=== PATIENT | male | born 1950 | race Caucasian/White ===

== ENCOUNTER 2021-08-10 06:52 | Emergency (ER) | payer BC ==
[~2021-08-10] VITALS: Ht 172.7 cm; Wt 67.0 kg
[2021-08-10 07:33] VITALS: BP 137/89
[2021-08-10] MEDS ORDERED: AMOX-580 PO (08:02)
[2021-08-10] MEDS ORDERED: amox tr/potassium clavulanate 875/125mg TAB PO ONE (08:05)
== END 2021-08-10 08:28 | disposition home or self-care (01) ==
LOC: EEVIPCON 06:53 → ER 06:53
DX: R10.32 Left lower quadrant pain (principal)
CPT/HCPCS: 99283

== ENCOUNTER 2021-09-26 08:33 | Outpatient (CLI) | payer BC ==
[2021-09-26 09:19] LABS: CLARITY,URINE CLOUDY (Clear); COLOR,URINE YELLOW (Yellow); GLUCOSE, URINE NEGATIVE (Neg); KETONES,URINE NEGATIVE (Neg); LEUKOCYTE ESTERASE ,URINE NEGATIVE (Neg); NITRITES, URINE NEGATIVE (Neg); OCCULT BLOOD,URINE LARGE (Neg); PROTEIN,URINE TRACE mg/dl (Neg); UROBILINOGEN,URINE 0.2 E.U/dL (0.2-1.0)
[2021-09-26 09:21] LABS: BASOPHILS % (AUTO) 0.6 % (0-1); EOSINOPHILS # (AUTO) 0.1 X10'3 (0-0.9); EOSINOPHILS % (AUTO) 1.8 % (0-6); HEMATOCRIT 43.6 % (42.0-52.0); HEMOGLOBIN 14.8 g/dl (14.0-17.9); LYMPHOCYTES # (AUTO) 1.6 X10'3 (1.1-4.8); LYMPHOCYTES % (AUTO) 34.8 % (21-51); MEAN CORPUSCULAR HEMOGLOBIN 32.9 PG (27.0-31.0); MEAN PLATELET VOLUME 8.4 FL (7.4-10.4); MONOCYTES # (AUTO) 0.5 X10'3 (0-0.9); MONOCYTES % (AUTO) 11.2 % (2-12); NEUTROPHILS # (AUTO) 2.4 X10'3 (1.8-7.7); NEUTROPHILS % (AUTO) 51.6 % (42-75); PLATELET COUNT 278 X10'3 (140-440); WHITE BLOOD COUNT 4.6 X10'3 (4.5-11.0)
[2021-09-26 09:26] LABS: UA COLLECTION TYPE CLN CATCH MIDSTREAM
[2021-09-26 09:28] LABS: BACTERIA,URINE FEW /HPF (Neg); MUCUS STRANDS NONE SEEN /LPF (Neg); RBC,URINE 50-100 /HPF (0-2); SQUAMOUS EPITHELIAL CELL,UR FEW /LPF (FEW); WBC CLUMPS,URINE FEW /HPF (NEGATIVE)
[2021-09-26 10:58] LABS: ALANINE AMINOTRANSFERASE 566 U/L (12-78); ALBUMIN 3.8 G/DL (3.4-5.0); ALBUMIN/GLOBULIN RATIO 1.2 (1.1-1.5); ALKALINE PHOSPHATASE 228 IU/L (46-116); ANION GAP 10 (8-16); ASPARTATE AMINO TRANSFERASE 166 U/L (10-37); BILIRUBIN,TOTAL 0.8 MG/DL (0.1-1.0); BLOOD UREA NITROGEN 17 MG/DL (7-18); BUN/CREATININE RATIO 16.5 (5.4-32.0); CALCIUM 9.3 MG/DL (8.5-10.1); CHLORIDE 106 MMOL/L (99-107); CREATININE 1.03 MG/DL (0.60-1.10); GLUCOSE 89 MG/DL (70-104); POTASSIUM 4.8 MMOL/L (3.5-5.1); SODIUM 144 MMOL/L (135-145); TOTAL CARBON DIOXIDE 28.3 MMOL/L (24-32); TOTAL PROTEIN 7.1 G/DL (6.4-8.2); eGFR 72 ML/MIN
[2021-09-27 10:21] LABS: % FREE PSA 26.9 % (.); PSA, FREE 0.78 ng/mL
== END 2021-09-26 23:59 | disposition home or self-care (01) ==
LOC: LAB 08:33
PROVIDERS: ATTEND Family Medicine
DX: N40.0 Benign prostatic hyperplasia without lower urinary tract symptoms (principal); N20.0 Calculus of kidney; R31.0 Gross hematuria; Z00.8 Encounter for other general examination
CPT/HCPCS: 36415; 76770; 80053; 81001; 84153; 84154; 84439; 84443; 85025; 87088

== ENCOUNTER 2021-10-01 14:56 | Outpatient (CLI) | payer BC | END 2021-10-01 23:59 | disposition home or self-care (01) | LOC: RAD 14:56 | PROVIDERS: ATTEND Urology | DX: N20.0 Calculus of kidney (principal); R51.9 Headache, unspecified | CPT/HCPCS: 74018 ==

== ENCOUNTER 2021-10-02 07:11 | Outpatient (CLI) | payer BC ==
[2021-10-02 13:02] LABS: ALANINE AMINOTRANSFERASE 216 U/L (12-78); ALBUMIN 4.3 G/DL (3.4-5.0); ALBUMIN/GLOBULIN RATIO 1.1 (1.1-1.5); ALKALINE PHOSPHATASE 170 IU/L (46-116); ASPARTATE AMINO TRANSFERASE 50 U/L (10-37); BILIRUBIN,DIRECT 0.2 MG/DL (0-0.3); BILIRUBIN,TOTAL 0.7 MG/DL (0.1-1.0); TOTAL PROTEIN 8.1 G/DL (6.4-8.2)
[2021-10-03 10:30] LABS: HBSAG SCREEN Negative (Negative); HEP A AB, IGM Negative (Negative); HEPATITIS C ANTIBODY <0.1 s/co ratio (0.0-0.9)
== END 2021-10-02 23:59 | disposition home or self-care (01) ==
LOC: LAB 07:11
PROVIDERS: ATTEND Family Medicine
DX: N40.1 Benign prostatic hyperplasia with lower urinary tract symptoms (principal); N40.2 Nodular prostate without lower urinary tract symptoms; R31.0 Gross hematuria; R74.01 Elevation of levels of liver transaminase levels; R94.5 Abnormal results of liver function studies
CPT/HCPCS: 36415; 80074; 80076; 86255

== ENCOUNTER 2021-10-03 08:30 | Outpatient (CLI) | payer BC | END 2021-10-03 23:59 | disposition home or self-care (01) | LOC: RAD 08:30 | PROVIDERS: ATTEND Family Medicine | DX: K76.89 Other specified diseases of liver (principal); N40.1 Benign prostatic hyperplasia with lower urinary tract symptoms; N40.2 Nodular prostate without lower urinary tract symptoms | CPT/HCPCS: 76700 ==

== ENCOUNTER 2021-10-17 14:04 | Day surgery (SDC) | payer BC ==
[2021-10-15 10:33] LABS: BASOPHILS % (AUTO) 0.7 % (0-1); EOSINOPHILS % (AUTO) 0.6 % (0-6); LYMPHOCYTES # (AUTO) 2.2 X10'3 (1.1-4.8); LYMPHOCYTES % (AUTO) 40.2 % (21-51); MEAN CORPUSCULAR HEMOGLOBIN 32.5 PG (27.0-31.0); MEAN CORPUSCULAR HGB CONC 33.7 g/dL (33.0-36.5); MEAN CORPUSCULAR VOLUME 96.5 FL (78-98); MEAN PLATELET VOLUME 7.7 FL (7.4-10.4); MONOCYTES # (AUTO) 0.5 X10'3 (0-0.9); MONOCYTES % (AUTO) 9.7 % (2-12); NEUTROPHILS # (AUTO) 2.6 X10'3 (1.8-7.7); NEUTROPHILS % (AUTO) 48.8 % (42-75); PRE OP HEMATOCRIT 42.1 % (42.0-52.0); PRE OP HEMOGLOBIN 14.2 g/dL (14.0-17.9); PRE OP PLATELET COUNT 210 X10'3 (140-440); RED BLOOD COUNT 4.36 X10'6 (4.70-6.10); RED CELL DISTRIBUTION WIDTH 13.1 % (11.5-14.5)
[2021-10-15 10:56] LABS: ALBUMIN 3.9 G/DL (3.4-5.0); ALBUMIN/GLOBULIN RATIO 1.1 (1.1-1.5); ALKALINE PHOSPHATASE 92 IU/L (46-116); BLOOD UREA NITROGEN 15 MG/DL (7-18); BUN/CREATININE RATIO 14.6 (5.4-32.0); CALCIUM 8.9 MG/DL (8.5-10.1); CHLORIDE 106 MMOL/L (99-107); CREATININE 1.03 MG/DL (0.60-1.10); PRE OP ALT 46 U/L (30-65); PRE OP ANION GAP 8 (8-16); PRE OP AST 24 U/L (10-37); PRE OP BILIRUB, TOTAL 0.5 MG/DL (0.0-1.0); PRE OP GLUCOSE 92 MG/DL (70-104); PRE OP SODIUM 142 MMOL/L (135-145); TOTAL CARBON DIOXIDE 28.1 MMOL/L (24-32); TOTAL PROTEIN 7.3 G/DL (6.4-8.2); eGFR 72 ML/MIN
[~2021-10-17] VITALS: Ht 172.7 cm; Wt 77.0 kg
[2021-10-17] VITALS (11 sets, daily range): BP systolic 124–150; BP diastolic 81–87
[~2021-10-17 14:04] MED LIST: NO HOME MEDS; cefazolin/dext.iso 2gm/50ml IV ONE; famotidine 20mg tablet PO ONE; ringers solution, lacted 1,000 ML IV SCH
[2021-10-17] MEDS ORDERED: proCHLORperazine 10 MG/2 ml inj IV PRN (15:05)
[2021-10-17] MEDS ORDERED: ondansetron/PF 4mg/2ml inj IV PRN (15:05)
[2021-10-17] MEDS ORDERED: meperidine/PF 25mg/ml syringe IV PRN ×3 (15:05)
[2021-10-17] MEDS ORDERED: morphine 4 MG/ML inj SYRINge IV PRN (15:05)
[2021-10-17] MEDS ORDERED: ringers solution, lacted 1,000 ML IV SCH (15:05)
[2021-10-17] MEDS ORDERED: hydrALAZINE 20mg/ml inj. IV PRN (15:05)
[2021-10-17] MEDS ORDERED: morphine 2 MG/ML inj. syringe IV PRN (15:05)
[2021-10-17] MEDS ORDERED: acetaminophen 1,000mg/100ml IV 100 ML IV PRN (15:05)
[2021-10-17] MEDS ORDERED: labetalol 20mg/4ml (5mg/ml) syringe IV PRN (15:05)
[2021-10-17] MEDS ORDERED: FENTANYL CITRATE/PF 50 MCG/1 ML VIAL ONE (15:07)
[2021-10-17] MEDS ORDERED: midazolam 1 mg/ML 2ml injection ONE (15:18)
[2021-10-17] MEDS ORDERED: dexamethasone sod phosphate 4mg/ml inj. ONE (15:29)
[2021-10-17] MEDS ORDERED: LIDOcaine 2% (20mg/ml) 5ml vial ONE (15:29)
[2021-10-17] MEDS ORDERED: ondansetron/PF 4mg/2ml inj ONE (15:29)
[2021-10-17] MEDS ORDERED: propofol inj 20 ML IV ONE (15:29)
[2021-10-17] MEDS ORDERED: rocuronium 10mg/ml inj IV ONE (15:29)
[2021-10-17] MEDS ORDERED: sugammadex 200mg/2ml injection IV ONE (15:45)
--- NOTE | 2021-10-17 15:58 | NUR ---
Received from OR via [facility] , accompanied by Anesthesiologist RAVEN and report given by Anesthesiolgist. PATIENT WITH 20G PIV IN RIGHT HAND RUNNING LR AT 100. DENIES PAIN AT THIS TIME. VSS. [address] SM[address]ATION IN PLACE. PINK URINE IN SMITH CATHETER. Addendum: 10/17/21 at 1605 by Louis Kennedy RN, RN Amended: Links added.
--- NOTE | 2021-10-17 17:38 | NUR ---
ALL DISCHARGE CRITERIA HAS BEEN MET. VSS, PAIN AT A TOLERABLE LEVEL, VOIDING AND ABLE TO SAFELY AMBULATE AND TRANSFER SELF. IV TAKEN OUT WITHOUT ANY COMPLICATIONS. ALL DISCHARGE INSTRUCTIONS COVERED WITH PATIENT AND ALL QUESTIONS ANSWERED. PATIENT TAKEN OUT VIA WHEELCHAIR TO PERSONAL VEHICLE WHERE FAMILY/FRIEND DROVE PATIENT HOME. URINE SLIGHTLY PINK APPROXIMATELY 2700 CC OUT DURING STAY IN . SENT HOME WITH LEG BAG, DANE HOSE ON AND NIGHT BAG KIT WELL. VSS. Addendum: 10/17/21 at 1752 by Louis Kennedy RN, RN Amended: Links added.
== END 2021-10-17 17:38 | disposition home or self-care (01) ==
LOC: PRE-OP 14:04
PROVIDERS: ATTEND Urology
DX: D49.4 Neoplasm of unspecified behavior of bladder (principal); C67.2 Malignant neoplasm of lateral wall of bladder; Z98.890 Other specified postprocedural states; Z20.822 Contact with and (suspected) exposure to COVID-19; Z79.899 Other long term (current) drug therapy
CPT/HCPCS: 36415; 52235; 80053; 82948; 85025; 87635; 93005; C9803; J0131; J0690; J1100; J2250; J2405; J2704; J3010; J3490; J7120; Z7506; Z7512; A4346; A4618

== ENCOUNTER 2021-10-24 09:02 | Outpatient (CLI) | payer BC ==
[~2021-10-24 09:02] MED LIST changes: -cefazolin/dext.iso 2gm/50ml IV ONE; -famotidine 20mg tablet PO ONE; +iohexol 350MG/ML 100ml bottle IV ONE; -ringers solution, lacted 1,000 ML IV SCH
== END 2021-10-24 23:59 | disposition home or self-care (01) ==
LOC: RAD 09:02
PROVIDERS: ATTEND Urology
DX: C67.9 Malignant neoplasm of bladder, unspecified (principal); N40.0 Benign prostatic hyperplasia without lower urinary tract symptoms; N32.89 Other specified disorders of bladder; K40.20 Bilateral inguinal hernia, without obstruction or gangrene, not specified as recurrent; M43.8X6 Other specified deforming dorsopathies, lumbar region; N20.0 Calculus of kidney; K76.89 Other specified diseases of liver
CPT/HCPCS: 74178; Q9967

== ENCOUNTER 2021-11-17 08:11 | Inpatient (IN) | payer BC ==
[~2021-11-17] VITALS: Ht 172.7 cm; Wt 83.0 kg
[~2021-11-17 08:11] MED LIST changes: -iohexol 350MG/ML 100ml bottle IV ONE
[2021-11-17] MEDS ORDERED: CefTRIAXone 2gm/NS 100ml IVPB 100 ML IV ONE (08:30)
[2021-11-17] MEDS ORDERED: acetaminophen 325mg tablet PO ONE (08:45)
[2021-11-17 08:54] LABS: BASOPHILS % (AUTO) 0.1 % (0-1); EOSINOPHILS % (AUTO) 0 % (0-6); HEMATOCRIT 43.7 % (42.0-52.0); HEMOGLOBIN 14.7 g/dl (14.0-17.9); LYMPHOCYTES # (AUTO) 0.8 X10'3 (1.1-4.8); LYMPHOCYTES % (AUTO) 5.6 % (21-51); MEAN CORPUSCULAR HEMOGLOBIN 32.1 PG (27.0-31.0); MEAN CORPUSCULAR HGB CONC 33.7 g/dL (33.0-36.5); MEAN CORPUSCULAR VOLUME 95.4 FL (78-98); MONOCYTES # (AUTO) 1.2 X10'3 (0-0.9); MONOCYTES % (AUTO) 7.8 % (2-12); NEUTROPHILS # (AUTO) 13.2 X10'3 (1.8-7.7); NEUTROPHILS % (AUTO) 86.5 % (42-75); PLATELET COUNT 220 X10'3 (140-440); RED BLOOD COUNT 4.58 X10'6 (4.70-6.10); RED CELL DISTRIBUTION WIDTH 12.7 % (11.5-14.5); WHITE BLOOD COUNT 15.2 X10'3 (4.5-11.0)
[2021-11-17] MEDS ORDERED: ketorolac trometh. 30mg/ml inj. IV ONE (09:00)
[2021-11-17] MEDS ORDERED: normal saline 1000ML IV soln IVB ONE (09:00)
[2021-11-17] MEDS ORDERED: ondansetron/PF 4mg/2ml inj IV ONE (09:05)
[2021-11-17 09:15] LABS: ALANINE AMINOTRANSFERASE 20 U/L (12-78); ALBUMIN 3.7 G/DL (3.4-5.0); ALBUMIN/GLOBULIN RATIO 0.9 (1.1-1.5); ALKALINE PHOSPHATASE 65 IU/L (46-116); ANION GAP 12 (8-16); ASPARTATE AMINO TRANSFERASE 22 U/L (10-37); BILIRUBIN,TOTAL 0.9 MG/DL (0.1-1.0); BLOOD UREA NITROGEN 20 MG/DL (7-18); BUN/CREATININE RATIO 12.3 (5.4-32.0); CALCIUM 8.9 MG/DL (8.5-10.1); CHLORIDE 102 MMOL/L (99-107); CREATININE 1.63 MG/DL (0.60-1.10); GLUCOSE 114 MG/DL (70-104); POTASSIUM 3.9 MMOL/L (3.5-5.1); SODIUM 139 MMOL/L (135-145); TOTAL CARBON DIOXIDE 25.3 MMOL/L (24-32); TOTAL PROTEIN 7.9 G/DL (6.4-8.2); eGFR 42 ML/MIN
[2021-11-17] MEDS ORDERED: FLO0.4C PO (09:38)
[2021-11-17] MEDS ORDERED: morphine 2 MG/ML inj. syringe IV PRN ×2 (09:45)
[2021-11-17] MEDS ORDERED: potassium CL 10mEq/100ml bag 100 ML IV PRN (09:45)
[2021-11-17] MEDS ORDERED: bisacodyl 10mg suppository rectal RC PRN (09:45)
[2021-11-17] MEDS ORDERED: magnesium 4gm in 100ml NS 100 ML IV PRN (09:45)
[2021-11-17] MEDS ORDERED: magnesium Cl slow-release 64mg tablet PO PRN (09:45)
[2021-11-17] MEDS ORDERED: magnesium hydroxide 30ml (MOM) UD suspension PO PRN (09:45)
[2021-11-17] MEDS ORDERED: HYDROcodone/acetaminophen 5mg/325mg tablet PO PRN (09:45)
[2021-11-17] MEDS ORDERED: acetaminophen 650mg rectal suppository RC PRN (09:45)
[2021-11-17] MEDS ORDERED: ondansetron/PF 4mg/2ml inj IV PRN (09:45)
[2021-11-17] MEDS ORDERED: diphenhydrAMINE 25mg capsule PO PRN (09:45)
[2021-11-17] MEDS ORDERED: magnesium 2GM in 50ml NS 50 ML IV PRN (09:45)
[2021-11-17] MEDS ORDERED: acetaminophen 325mg tablet PO PRN (09:45)
[2021-11-17] MEDS ORDERED: mag hydrox/Alum hydrox/simeth 30ml oral suspension PO PRN (09:45)
[2021-11-17] MEDS ORDERED: potassium Cl 20 mEq SR tablet PO PRN ×2 (09:45)
[2021-11-17] MEDS ORDERED: HYDROcodone/acetaminophen 10/325mg tab PO PRN (09:45)
[2021-11-17 10:17] LABS: CLARITY,URINE CLOUDY (Clear); COLOR,URINE YELLOW (Yellow); GLUCOSE, URINE NEGATIVE (Neg); KETONES,URINE 15 mg/dl (Neg); LEUKOCYTE ESTERASE ,URINE MODERATE (Neg); NITRITES, URINE POSITIVE (Neg); OCCULT BLOOD,URINE SMALL (Neg); PH,URINE 6.5 (4.8-8.0); PROTEIN,URINE 30 mg/dl (Neg); UROBILINOGEN,URINE 0.2 E.U/dL (0.2-1.0)
[2021-11-17 10:23] LABS: UA COLLECTION TYPE URINAL
[2021-11-17 10:25] LABS: BACTERIA,URINE 1+ /HPF (Neg); MUCUS STRANDS FEW /LPF (Neg); SQUAMOUS EPITHELIAL CELL,UR NONE SEEN /LPF (FEW); WBC CLUMPS,URINE MODERATE /HPF (NEGATIVE); WBC,URINE TNTC /HPF (0-4)
[2021-11-17 10:41] LABS: HEMOGLOBIN A1C 5.4 % (4.5-6.2)
[2021-11-17] MEDS: normal saline 1000ml 1,000 ML IV SCH ×2 (11:39→20:31)
--- NOTE | 2021-11-17 12:25 | NUR ---
REPORT TO RUPA VALIENTE ON PCU
[2021-11-17 15:00] VITALS: BP 118/57
[2021-11-17] MEDS: acetaminophen 325mg tablet PO PRN (16:13)
[2021-11-17 18:00] VITALS: BP 99/54
--- NOTE | 2021-11-17 18:07 | NUR ---
Patient in room PCU 3021. I have received report from STEFFANIE Phelps and had the opportunity to ask questions and assume patient care.
--- NOTE | 2021-11-17 18:14 | NUR ---
Problems reprioritized. Patient report given, questions answered & plan of care reviewed with Teresa VALIENTE.
--- NOTE | 2021-11-17 18:16 | NUR ---
Patient in room PCU 3021. I have received report from STEFFANIE Smith and had the opportunity to ask questions and assume patient care.
--- NOTE | 2021-11-17 19:29 | NUR ---
Paged Dr. Siu as patient has not rec'd his Flomax 0.4 today, it is not scheduled until tomorrow at 0800. Per ok to order a dose to be given now.
[2021-11-17] MEDS: docusate sod 100mg capsule PO SCH (20:00)
[2021-11-17] MEDS: heparin, porcine 5000 units/ml vial SQ SCH (20:00)
[2021-11-17] MEDS: K and/or MAG REPLACEMENT MC SCH (20:40)
[2021-11-17] MEDS ORDERED: tamsulosin 0.4mg capsule PO ONE (21:00)
[2021-11-17 22:00] VITALS: BP 122/53
[2021-11-18] VITALS (7 sets, daily range): BP systolic 82–118; BP diastolic 47–71
[2021-11-18] MEDS: normal saline 1000ml 1,000 ML IV SCH ×3 (03:32→23:55)
--- NOTE | 2021-11-18 06:07 | NUR ---
Problems reprioritized. Patient report given, questions answered & plan of care reviewed with STEFFANIE Philip.
--- NOTE | 2021-11-18 06:27 | NUR ---
Patient in room PCU 3021. I have received report from Teresa VALIENTE and had the opportunity to ask questions and assume patient care. Patient is resting in bed and in no acute distress.
--- NOTE | 2021-11-18 06:32 | NUR ---
Patient in room PCU 3021. I have received report from Desirae and had the opportunity to ask questions and assume patient care.
[2021-11-18 07:01] LABS: BASOPHILS % (AUTO) 0.1 % (0-1); EOSINOPHILS % (AUTO) 0.1 % (0-6); HEMATOCRIT 36.2 % (42.0-52.0); HEMOGLOBIN 12.2 g/dl (14.0-17.9); LYMPHOCYTES # (AUTO) 1.4 X10'3 (1.1-4.8); LYMPHOCYTES % (AUTO) 13.2 % (21-51); MEAN CORPUSCULAR HEMOGLOBIN 32.2 PG (27.0-31.0); MEAN CORPUSCULAR HGB CONC 33.7 g/dL (33.0-36.5); MEAN CORPUSCULAR VOLUME 95.4 FL (78-98); MEAN PLATELET VOLUME 7.9 FL (7.4-10.4); MONOCYTES # (AUTO) 0.8 X10'3 (0-0.9); MONOCYTES % (AUTO) 7.1 % (2-12); NEUTROPHILS # (AUTO) 8.7 X10'3 (1.8-7.7); NEUTROPHILS % (AUTO) 79.5 % (42-75); PLATELET COUNT 158 X10'3 (140-440); RED BLOOD COUNT 3.79 X10'6 (4.70-6.10); RED CELL DISTRIBUTION WIDTH 12.8 % (11.5-14.5); WHITE BLOOD COUNT 10.9 X10'3 (4.5-11.0)
[2021-11-18 07:49] LABS: ALANINE AMINOTRANSFERASE 16 U/L (12-78); ALBUMIN 2.5 G/DL (3.4-5.0); ALBUMIN/GLOBULIN RATIO 0.8 (1.1-1.5); ALKALINE PHOSPHATASE 44 IU/L (46-116); ANION GAP 9 (8-16); ASPARTATE AMINO TRANSFERASE 17 U/L (10-37); BILIRUBIN,TOTAL 0.6 MG/DL (0.1-1.0); BLOOD UREA NITROGEN 19 MG/DL (7-18); BUN/CREATININE RATIO 14.7 (5.4-32.0); CALCIUM 7.7 MG/DL (8.5-10.1); CHLORIDE 111 MMOL/L (99-107); CHOL/HDL RATIO 2.3 (0.00-4.99); CHOLESTEROL 102 MG/DL (0-200); CREATININE 1.29 MG/DL (0.60-1.10); GLUCOSE 168 MG/DL (70-104); HDL CHOLESTEROL 45 MG/DL (35-60); LDL CHOLESTEROL 52 MG/DL (50-100); PHOSPHORUS 2.1 MG/DL (2.3-4.5); SODIUM 142 MMOL/L (135-145); TOTAL CARBON DIOXIDE 22.1 MMOL/L (24-32); TOTAL PROTEIN 5.8 G/DL (6.4-8.2); TRIGLYCERIDES 53 MG/DL (20-135); eGFR 55 ML/MIN
[2021-11-18] MEDS: heparin, porcine 5000 units/ml vial SQ SCH ×2 (08:00→20:00)
[2021-11-18] MEDS: K and/or MAG REPLACEMENT MC SCH ×2 (08:00→20:00)
[2021-11-18] MEDS: tamsulosin 0.4mg capsule PO SCH (08:35)
[2021-11-18] MEDS: cefTRIAXone 1g/NS 100ml IVPB 100 ML IV SCH (08:36)
[2021-11-18] MEDS: docusate sod 100mg capsule PO SCH ×2 (08:37→20:56)
[2021-11-18] MEDS: acetaminophen 325mg tablet PO PRN ×2 (08:39→19:34)
--- NOTE | 2021-11-18 11:25 | NUR ---
Page Accepted - to Dr. Rodriguez re : vtach promotional table spacer Message: [phone] Jeremy. Patient had 7 beat run of vtach. Tamera [phone]
[2021-11-18] MEDS ORDERED: iohexol 300mg/ml 100ml inj. ONE (11:46)
[2021-11-18] MEDS: Neutra Phos packet PO PRN ×3 (14:55→20:57)
--- NOTE | 2021-11-18 18:26 | NUR ---
Problems reprioritized. Patient report given, questions answered & plan of care reviewed with Norberto VALIENTE .
--- NOTE | 2021-11-18 18:27 | NUR ---
[place] documentation: I have reviewed and agree with all interventions, assessments performed and documented by Leatha VALIENTE . [place] Medication Administration: For this medication-pass time frame, all medication were reviewed, dispensed, administered and documented per hospital policy by Leatha VALIENTE .
--- NOTE | 2021-11-19 06:00 | NUR ---
Problems reprioritized. Patient report given, questions answered & plan of care reviewed with ANDREA. Addendum: 11/19/21 at 0657 by Stewart Barclay RN Amended: Links added.
--- NOTE | 2021-11-19 06:30 | NUR ---
Patient in room PCU 3021. I have received report from Norberto VALIENTE and had the opportunity to ask questions and assume patient care.
[2021-11-19 06:57] VITALS: BP 112/63
[2021-11-19 07:17] LABS: BASOPHILS % (AUTO) 0.4 % (0-1); EOSINOPHILS # (AUTO) 0.1 X10'3 (0-0.9); EOSINOPHILS % (AUTO) 1.1 % (0-6); HEMATOCRIT 39.3 % (42.0-52.0); HEMOGLOBIN 13.3 g/dl (14.0-17.9); LYMPHOCYTES # (AUTO) 1.5 X10'3 (1.1-4.8); LYMPHOCYTES % (AUTO) 21.9 % (21-51); MEAN CORPUSCULAR HEMOGLOBIN 32.7 PG (27.0-31.0); MEAN CORPUSCULAR VOLUME 96.3 FL (78-98); MEAN PLATELET VOLUME 8.2 FL (7.4-10.4); MONOCYTES # (AUTO) 0.5 X10'3 (0-0.9); MONOCYTES % (AUTO) 7.1 % (2-12); NEUTROPHILS # (AUTO) 4.7 X10'3 (1.8-7.7); NEUTROPHILS % (AUTO) 69.5 % (42-75); PLATELET COUNT 176 X10'3 (140-440); RED BLOOD COUNT 4.08 X10'6 (4.70-6.10); RED CELL DISTRIBUTION WIDTH 12.6 % (11.5-14.5); WHITE BLOOD COUNT 6.8 X10'3 (4.5-11.0)
[2021-11-19 07:55] LABS: ALANINE AMINOTRANSFERASE 23 U/L (12-78); ALBUMIN 2.9 G/DL (3.4-5.0); ALBUMIN/GLOBULIN RATIO 0.7 (1.1-1.5); ALKALINE PHOSPHATASE 55 IU/L (46-116); ANION GAP 9 (8-16); ASPARTATE AMINO TRANSFERASE 23 U/L (10-37); BILIRUBIN,TOTAL 0.5 MG/DL (0.1-1.0); BLOOD UREA NITROGEN 15 MG/DL (7-18); BUN/CREATININE RATIO 12.9 (5.4-32.0); CALCIUM 8.3 MG/DL (8.5-10.1); CHLORIDE 107 MMOL/L (99-107); CREATININE 1.16 MG/DL (0.60-1.10); GLUCOSE 116 MG/DL (70-104); MAGNESIUM 1.9 MG/DL (1.5-2.4); PHOSPHORUS 2.2 MG/DL (2.3-4.5); POTASSIUM 3.4 MMOL/L (3.5-5.1); SODIUM 141 MMOL/L (135-145); TOTAL CARBON DIOXIDE 25.3 MMOL/L (24-32); TOTAL PROTEIN 6.8 G/DL (6.4-8.2); eGFR 62 ML/MIN
[2021-11-19] MEDS: heparin, porcine 5000 units/ml vial SQ SCH (08:00)
[2021-11-19] MEDS: cefTRIAXone 1g/NS 100ml IVPB 100 ML IV SCH (08:07)
[2021-11-19] MEDS: docusate sod 100mg capsule PO SCH (08:08)
[2021-11-19] MEDS: tamsulosin 0.4mg capsule PO SCH (08:08)
[2021-11-19] MEDS ORDERED: CEFD300C3 PO (09:16)
[2021-11-19] MEDS ORDERED: LACT1CAP26 PO (09:16)
--- NOTE | 2021-11-19 11:43 | NUR ---
Patient discharged. Aware that replacement for lab values were needed. of patient stated that they will improve when he starts eating his diet at home. Patient agreed with . Proceeded with discharge.
== END 2021-11-19 10:45 | disposition home or self-care (01) | DRG 872 ==
LOC: EEVIPCON 08:11 → ER 08:11 → ED HOLD 09:44 → PCU 3S 12:59
PROVIDERS: ADMIT Family Medicine; ATTEND Family Medicine
PROC: BW211ZZ Computerized Tomography (CT Scan) of Abdomen and Pelvis using Low Osmolar Contrast (ICD-10-PCS; principal; 2021-11-18)
DX: A41.9 Sepsis, unspecified organism (principal); C68.9 Malignant neoplasm of urinary organ, unspecified; N12 Tubulo-interstitial nephritis, not specified as acute or chronic; N17.9 Acute kidney failure, unspecified; Z20.822 Contact with and (suspected) exposure to COVID-19; N30.91 Cystitis, unspecified with hematuria; Z80.0 Family history of malignant neoplasm of digestive organs; Z87.442 Personal history of urinary calculi
CPT/HCPCS: 36415; 71045; 74177; 76770; 80053; 80061; 81001; 83036; 83605; 83735; 84100; 84145; 84484; 85025; 87040; 87081; 87088; 87635; 96361; 96374; 96375; 99285; G0378; J0696; J1885; J2405; J7030; Q9967

== ENCOUNTER 2022-08-11 15:31 | Outpatient (CLI) | payer BC ==
[~2022-08-11 15:31] MED LIST changes: +FLO0.4C PO; +LACT1CAP26 PO; -NO HOME MEDS
== END 2022-08-11 23:59 | disposition home or self-care (01) ==
LOC: RAD 15:31
PROVIDERS: ATTEND Urology
DX: N32.89 Other specified disorders of bladder (principal); Z85.51 Personal history of malignant neoplasm of bladder
CPT/HCPCS: 76770

== ENCOUNTER 2023-07-14 06:46 | Day surgery (SDC) | payer BC ==
[2023-07-06 11:13] LABS: BASOPHILS % (AUTO) 0.6 % (0-1); EOSINOPHILS # (AUTO) 0.1 X10'3 (0-0.9); EOSINOPHILS % (AUTO) 1.3 % (0-6); LYMPHOCYTES # (AUTO) 1.8 X10'3 (1.1-4.8); LYMPHOCYTES % (AUTO) 34.9 % (21-51); MEAN CORPUSCULAR HEMOGLOBIN 33.5 PG (27.0-31.0); MEAN CORPUSCULAR HGB CONC 34.4 g/dL (33.0-36.5); MEAN CORPUSCULAR VOLUME 97.3 FL (78-98); MONOCYTES # (AUTO) 0.5 X10'3 (0-0.9); MONOCYTES % (AUTO) 9.9 % (2-12); NEUTROPHILS # (AUTO) 2.8 X10'3 (1.8-7.7); NEUTROPHILS % (AUTO) 53.3 % (42-75); PRE OP HEMATOCRIT 43.4 % (42.0-52.0); PRE OP PLATELET COUNT 214 X10'3 (140-440); PRE OP WHITE BLOOD COUNT 5.3 10'3 (4.8-10.8); RED BLOOD COUNT 4.46 X10'6 (4.70-6.10); RED CELL DISTRIBUTION WIDTH 13.8 % (11.5-14.5)
[2023-07-06 11:27] LABS: BILIRUBIN,URINE NEGATIVE (Neg); CLARITY,URINE SLIGHTLY CLOUDY (Clear); COLOR,URINE YELLOW (Yellow); GLUCOSE, URINE NEGATIVE (Neg); KETONES,URINE TRACE mg/dl (Neg); LEUKOCYTE ESTERASE ,URINE NEGATIVE (Neg); NITRITES, URINE NEGATIVE (Neg); OCCULT BLOOD,URINE NEGATIVE (Neg); PH,URINE 6.5 (4.8-8.0); PROTEIN,URINE NEGATIVE (Neg); UROBILINOGEN,URINE 0.2 E.U/dL (0.2-1.0)
[2023-07-06 11:45] LABS: ALBUMIN 3.9 G/DL (3.4-5.0); ALBUMIN/GLOBULIN RATIO 1.1 (1.1-1.5); ALKALINE PHOSPHATASE 63 IU/L (46-116); BLOOD UREA NITROGEN 14 MG/DL (7-18); BUN/CREATININE RATIO 13.5 (10.0-20.0); CALCIUM 9.2 MG/DL (8.5-10.1); CHLORIDE 103 MMOL/L (99-107); CREATININE 1.04 MG/DL (0.60-1.10); PRE OP ALT 23 U/L (30-65); PRE OP ANION GAP 8 (8-16); PRE OP AST 23 U/L (10-37); PRE OP BILIRUB, TOTAL 0.8 MG/DL (0.0-1.0); PRE OP GLUCOSE 90 MG/DL (70-104); PRE OP SODIUM 137 MMOL/L (135-145); TOTAL CARBON DIOXIDE 26.2 MMOL/L (24-32); TOTAL PROTEIN 7.5 G/DL (6.4-8.2); UA COLLECTION TYPE CLN CATCH MIDSTREAM; eGFR 71 ML/MIN
[2023-07-06 11:52] LABS: BACTERIA,URINE FEW /HPF (Neg); MUCUS STRANDS MANY /LPF (Neg); RBC,URINE 0-2 /HPF (0-2); SQUAMOUS EPITHELIAL CELL,UR FEW /LPF (FEW); WBC,URINE 0-4 /HPF (0-4)
[~2023-07-14] VITALS: Ht 170.2 cm; Wt 80.0 kg
[~2023-07-14 06:46] MED LIST changes: -FLO0.4C PO; -LACT1CAP26 PO; +cefazolin 2gm/D5W 100mL 100 ML IV ONE; +famotidine 20mg tablet PO ONE; +ringers solution, lacted 1,000 ML IV SCH
[2023-07-14 06:47] VITALS: RESP 15; O2SAT 98
[2023-07-14 07:08] VITALS: BP 155/82; PULSE 81; RESP 16; TEMP 97.5; O2SAT 96
[2023-07-14] MEDS ORDERED: iohexol 300 MG/1 ML 50ml polymer ONE (07:28)
[2023-07-14] MEDS ORDERED: sevoflurane 250ml liquid IH ONE (07:54)
[2023-07-14] MEDS ORDERED: fentaNYL/PF 50MCG/1 ML 2ML syringe ONE (08:04)
[2023-07-14] MEDS ORDERED: midazolam 1 mg/ML 2ml injection ONE (08:04)
[2023-07-14] MEDS ORDERED: dexamethasone sod phosphate 4mg/ml inj. ONE (08:18)
[2023-07-14] MEDS ORDERED: propofol inj 20 ML IV ONE (08:18)
[2023-07-14] MEDS ORDERED: LIDOcaine 2% (20mg/ml) 5ml vial ONE (08:18)
[2023-07-14] MEDS ORDERED: ondansetron/PF 4mg/2ml inj ONE (08:18)
[2023-07-14] MEDS ORDERED: iohexol 350 MG/ML 50ML vial IV ONE (08:24)
[2023-07-14 08:59] VITALS: BP 139/92; PULSE 88; RESP 16; O2SAT 99
[2023-07-14] MEDS ORDERED: morphine 2 MG/ML inj. syringe IV PRN (09:00)
[2023-07-14] MEDS ORDERED: labetalol 20mg/4ml (5mg/ml) syringe IV PRN (09:00)
[2023-07-14] MEDS ORDERED: ondansetron/PF 4mg/2ml inj IV PRN (09:00)
[2023-07-14] MEDS ORDERED: morphine 4 MG/ML inj SYRINge IV PRN (09:00)
[2023-07-14] MEDS ORDERED: ketorolac tromethamine 15mg/ml inj. IV ONE (09:00)
[2023-07-14] MEDS ORDERED: hydrALAZINE 20mg/ml inj. IV PRN (09:00)
[2023-07-14] MEDS ORDERED: ringers solution, lacted 1,000 ML IV SCH (09:00)
[2023-07-14] MEDS ORDERED: proCHLORperazine 10 MG/2 ml inj IV PRN (09:00)
[2023-07-14] MEDS ORDERED: meperidine/PF 25mg/ml syringe IV PRN ×3 (09:00)
[2023-07-14] MEDS ORDERED: acetaminophen 1,000mg/100ml IV 100 ML IV ONE (09:00)
[2023-07-14 09:10] VITALS: BP 118/60; PULSE 74; RESP 15; O2SAT 97
[2023-07-14 09:20] VITALS: BP 139/81; PULSE 70; RESP 11; O2SAT 98
[2023-07-14 09:30] VITALS: BP 121/79; PULSE 69; RESP 12; O2SAT 99
== END 2023-07-14 09:39 | disposition home or self-care (01) ==
LOC: PAS 06:46
PROVIDERS: ATTEND Urology
DX: C67.9 Malignant neoplasm of bladder, unspecified (principal); D49.4 Neoplasm of unspecified behavior of bladder; N32.89 Other specified disorders of bladder; N40.1 Benign prostatic hyperplasia with lower urinary tract symptoms; R39.12 Poor urinary stream; Z87.442 Personal history of urinary calculi; Z98.890 Other specified postprocedural states; Z79.899 Other long term (current) drug therapy
CPT/HCPCS: 36415; 52235; 74420; 80053; 81001; 82948; 85025; 86885; 86900; 86901; 93005; J0131; J0690; J1100; J1885; J2250; J2405; J2704; J3010; J3490; J7120; Q9967; Z7506; Z7508; Z7512; 76000; A4355; A4618; A6258; C1769

== ENCOUNTER 2023-07-28 11:25 | Outpatient (CLI) | payer BC | END 2023-07-28 23:59 | disposition home or self-care (01) | LOC: RAD 11:25 | PROVIDERS: ATTEND Urology | DX: N40.0 Benign prostatic hyperplasia without lower urinary tract symptoms (principal); Z85.51 Personal history of malignant neoplasm of bladder | CPT/HCPCS: 76770 ==

== ENCOUNTER → 2023-08-06 | Outpatient (CLI) | payer BC ==
[2023-08-06 14:11] LABS: BILIRUBIN,URINE NEGATIVE (Neg); CLARITY,URINE SLIGHTLY CLOUDY (Clear); COLOR,URINE YELLOW (Yellow); GLUCOSE, URINE NEGATIVE (Neg); KETONES,URINE NEGATIVE (Neg); LEUKOCYTE ESTERASE ,URINE TRACE (Neg); NITRITES, URINE NEGATIVE (Neg); OCCULT BLOOD,URINE NEGATIVE (Neg); PH,URINE 5.5 (4.8-8.0); PROTEIN,URINE NEGATIVE (Neg); UROBILINOGEN,URINE 0.2 E.U/dL (0.2-1.0)
[2023-08-06 14:12] LABS: UA COLLECTION TYPE CLN CATCH MIDSTREAM
[2023-08-06 14:12] LABS: BASOPHILS % (AUTO) 0.4 % (0-1); EOSINOPHILS % (AUTO) 0.7 % (0-6); HEMATOCRIT 45.2 % (42.0-52.0); HEMOGLOBIN 15.4 g/dl (14.0-17.9); LYMPHOCYTES # (AUTO) 2.2 X10'3 (1.1-4.8); LYMPHOCYTES % (AUTO) 39.1 % (21-51); MEAN CORPUSCULAR HEMOGLOBIN 33.2 PG (27.0-31.0); MEAN CORPUSCULAR VOLUME 97.5 FL (78-98); MEAN PLATELET VOLUME 8.1 FL (7.4-10.4); MONOCYTES # (AUTO) 0.5 X10'3 (0-0.9); MONOCYTES % (AUTO) 8.8 % (2-12); NEUTROPHILS # (AUTO) 2.9 X10'3 (1.8-7.7); PLATELET COUNT 234 X10'3 (140-440); RED BLOOD COUNT 4.63 X10'6 (4.70-6.10); RED CELL DISTRIBUTION WIDTH 13.6 % (11.5-14.5); WHITE BLOOD COUNT 5.7 X10'3 (4.5-11.0)
[2023-08-06 14:31] LABS: APTT 27 SECONDS (22-32); PROTHROMBIN TIME 10.4 SECONDS (9.0-12.0)
[2023-08-06 14:42] LABS: MUCUS STRANDS MANY /LPF (Neg)
[2023-08-06 14:47] LABS: BACTERIA,URINE FEW /HPF (Neg)
[2023-08-06 14:48] LABS: SQUAMOUS EPITHELIAL CELL,UR FEW /LPF (FEW)
[2023-08-06 14:49] LABS: HYALINE CASTS 0-3 /LPF (NEGATIVE)
[2023-08-06 14:51] LABS: WBC,URINE 50-100 /HPF (0-4)
[2023-08-06 15:44] LABS: ALANINE AMINOTRANSFERASE 25 U/L (12-78); ALBUMIN 4.2 G/DL (3.4-5.0); ALKALINE PHOSPHATASE 75 IU/L (46-116); ANION GAP 11 (8-16); ASPARTATE AMINO TRANSFERASE 22 U/L (10-37); BILIRUBIN,TOTAL 0.6 MG/DL (0.1-1.0); BLOOD UREA NITROGEN 20 MG/DL (7-18); BUN/CREATININE RATIO 18.9 (10.0-20.0); C-REACTIVE PROTEIN 0.32 MG/DL (0.0-0.5); CALCIUM 9.2 MG/DL (8.5-10.1); CHLORIDE 103 MMOL/L (99-107); CREATININE 1.06 MG/DL (0.60-1.10); GLUCOSE 97 MG/DL (70-104); POTASSIUM 3.7 MMOL/L (3.5-5.1); SODIUM 141 MMOL/L (135-145); TOTAL CARBON DIOXIDE 27.2 MMOL/L (24-32); TOTAL PROTEIN 8.3 G/DL (6.4-8.2); eGFR 69 ML/MIN
== END | disposition home or self-care (01) ==
LOC: RAD 12:42
PROVIDERS: ATTEND Family Medicine
DX: M13.1 Monoarthritis, not elsewhere classified (principal); L27.0 Generalized skin eruption due to drugs and medicaments taken internally; K12.32 Oral mucositis (ulcerative) due to other drugs; Z88.2 Allergy status to sulfonamides
CPT/HCPCS: 36415; 71046; 80053; 81001; 84145; 85025; 85610; 85651; 85730; 86140; 87040; 87070; 87088; 87102

== ENCOUNTER 2023-10-11 09:03 | Day surgery (SDC) | payer BC ==
[2023-10-11] VITALS (18 sets, daily range): BP systolic 114–147; BP diastolic 65–89; PULSE 56–73; RESP 9–16; TEMP 97.6; O2SAT 95–100
[~2023-10-11] VITALS: Ht 170.2 cm; Wt 77.8 kg
[~2023-10-11 09:03] MED LIST changes: -cefazolin 2gm/D5W 100mL 100 ML IV ONE; -famotidine 20mg tablet PO ONE
[2023-10-11] MEDS: cefazolin 2gm/D5W 100mL 100 ML IV ONE (09:58)
[2023-10-11 09:59] LABS: BASOPHILS % (AUTO) 0.6 % (0-1); LYMPHOCYTES # (AUTO) 1.9 X10'3 (1.1-4.8); LYMPHOCYTES % (AUTO) 46.9 % (21-51); MEAN CORPUSCULAR HEMOGLOBIN 33.1 PG (27.0-31.0); MEAN CORPUSCULAR HGB CONC 34.1 g/dL (33.0-36.5); MEAN PLATELET VOLUME 8.2 FL (7.4-10.4); MONOCYTES # (AUTO) 0.4 X10'3 (0-0.9); MONOCYTES % (AUTO) 10.6 % (2-12); NEUTROPHILS # (AUTO) 1.7 X10'3 (1.8-7.7); NEUTROPHILS % (AUTO) 40.9 % (42-75); PRE OP HEMATOCRIT 43.9 % (42.0-52.0); PRE OP PLATELET COUNT 192 X10'3 (140-440); PRE OP WHITE BLOOD COUNT 4.1 10'3 (4.8-10.8); RED BLOOD COUNT 4.53 X10'6 (4.70-6.10); RED CELL DISTRIBUTION WIDTH 13.1 % (11.5-14.5)
[2023-10-11 10:16] LABS: ALBUMIN 3.9 G/DL (3.4-5.0); ALBUMIN/GLOBULIN RATIO 1.2 (1.1-1.5); ALKALINE PHOSPHATASE 54 IU/L (46-116); BLOOD UREA NITROGEN 19 MG/DL (7-18); BUN/CREATININE RATIO 15.4 (10.0-20.0); CALCIUM 8.7 MG/DL (8.5-10.1); CHLORIDE 105 MMOL/L (99-107); CREATININE 1.23 MG/DL (0.60-1.10); PRE OP ALT 29 U/L (30-65); PRE OP ANION GAP 6 (8-16); PRE OP AST 57 U/L (10-37); PRE OP BILIRUB, TOTAL 0.9 MG/DL (0.0-1.0); PRE OP GLUCOSE 91 MG/DL (70-104); PRE OP POTASSIUM 3.9 MMOL/L (3.4-5.1); PRE OP SODIUM 138 MMOL/L (135-145); TOTAL CARBON DIOXIDE 26.9 MMOL/L (24-32); TOTAL PROTEIN 7.2 G/DL (6.4-8.2); eCRCL 52 ML/MIN; eGFR 58 ML/MIN
[2023-10-11] MEDS ORDERED: midazolam 1 mg/ML 2ml injection ONE (10:47)
[2023-10-11] MEDS ORDERED: fentaNYL/PF 50MCG/1 ML 2ML syringe ONE (10:47)
[2023-10-11] MEDS ORDERED: LIDOcaine 0.5% (5mg/ml) 50ml vial ONE (10:47)
[2023-10-11] MEDS: BUPIVAcaine/PF 2.5mg/ml (0.25%) 10ml vial IJ ONE (11:02)
[2023-10-11] MEDS: LIDOcaine 2% (20mg/ml) 5ml vial ONE (11:02)
[2023-10-11] MEDS ORDERED: propofol inj 20 ML IV ONE (11:37)
[2023-10-11] MEDS ORDERED: proCHLORperazine 10 MG/2 ml inj IV PRN (11:50)
[2023-10-11] MEDS ORDERED: meperidine/PF 25mg/ml syringe IV PRN (11:50)
[2023-10-11] MEDS ORDERED: ondansetron/PF 4mg/2ml inj IV PRN (11:50)
[2023-10-11] MEDS ORDERED: ringers solution, lacted 1,000 ML IV SCH (11:50)
[2023-10-11] MEDS ORDERED: morphine 2 MG/ML inj. syringe IV PRN (11:50)
[2023-10-11] MEDS: meperidine/PF 25mg/ml syringe IV PRN ×2 (11:58→12:55)
[2023-10-11] MEDS: morphine 4 MG/ML inj SYRINge IV PRN (12:12)
[2023-10-11] MEDS: oxyCODONE/APAP 5-325mg tablet PO ONE (12:33)
[2023-10-11] MEDS: acetaminophen 1,000mg/100ml IV 100 ML IV ONE (12:43)
== END 2023-10-11 14:29 | disposition home or self-care (01) ==
LOC: PAS 09:03
PROVIDERS: ATTEND Orthopaedic Surgery Hand Surgery
DX: M18.12 Unilateral primary osteoarthritis of first carpometacarpal joint, left hand (principal); I10 Essential (primary) hypertension; Z79.899 Other long term (current) drug therapy
CPT/HCPCS: 25310; 25447; 36415; 80053; 82948; 85025; 93005; J0131; J0690; J2175; J2250; J2270; J2704; J3010; J3490; J7030; J7120; Z7506; Z7512; A4215; A4565; A4618; A7000

== ENCOUNTER 2024-09-18 11:02 | Outpatient (CLI) | payer BC ==
[2024-09-18 11:45] LABS: BASOPHILS % (AUTO) 0.9 % (0-1); EOSINOPHILS # (AUTO) 0.1 X10'3 (0-0.9); EOSINOPHILS % (AUTO) 1.2 % (0-6); HEMATOCRIT 46.7 % (42.0-52.0); HEMOGLOBIN 15.7 g/dl (14.0-17.9); LYMPHOCYTES # (AUTO) 1.8 X10'3 (1.1-4.8); LYMPHOCYTES % (AUTO) 44.9 % (21-51); MEAN CORPUSCULAR HEMOGLOBIN 32.8 PG (27.0-31.0); MEAN CORPUSCULAR HGB CONC 33.6 g/dL (33.0-36.5); MEAN CORPUSCULAR VOLUME 97.7 FL (78-98); MEAN PLATELET VOLUME 7.9 FL (7.4-10.4); MONOCYTES # (AUTO) 0.3 X10'3 (0-0.9); MONOCYTES % (AUTO) 8.3 % (2-12); NEUTROPHILS # (AUTO) 1.8 X10'3 (1.8-7.7); NEUTROPHILS % (AUTO) 44.7 % (42-75); PLATELET COUNT 220 X10'3 (140-440); RED BLOOD COUNT 4.78 X10'6 (4.70-6.10); RED CELL DISTRIBUTION WIDTH 13.2 % (11.5-14.5); WHITE BLOOD COUNT 4.1 X10'3 (4.5-11.0)
[2024-09-18 12:14] LABS: HEMOGLOBIN A1C 5.2 % (4.5-6.2)
[2024-09-18 12:20] LABS: ALANINE AMINOTRANSFERASE 26 U/L (12-78); ALBUMIN 4.2 G/DL (3.4-5.0); ALBUMIN/GLOBULIN RATIO 1.3 (1.1-1.5); ALKALINE PHOSPHATASE 63 IU/L (46-116); ANION GAP 5 (8-16); ASPARTATE AMINO TRANSFERASE 23 U/L (10-37); BILIRUBIN,TOTAL 0.9 MG/DL (0.1-1.0); BLOOD UREA NITROGEN 11 MG/DL (7-18); BUN/CREATININE RATIO 10.5 (10.0-20.0); CALCIUM 9.3 MG/DL (8.5-10.1); CHLORIDE 107 MMOL/L (99-107); CHOL/HDL RATIO 2.6 (0.00-4.99); CHOLESTEROL 176 MG/DL (0-200); CREATININE 1.05 MG/DL (0.60-1.10); GLUCOSE 88 MG/DL (70-104); HDL CHOLESTEROL 67 MG/DL (35-60); LDL CHOLESTEROL 96 MG/DL (50-100); POTASSIUM 4.5 MMOL/L (3.5-5.1); SODIUM 143 MMOL/L (135-145); TOTAL CARBON DIOXIDE 30.6 MMOL/L (24-32); TOTAL PROTEIN 7.5 G/DL (6.4-8.2); TRIGLYCERIDES 48 MG/DL (20-135); eGFR 70 ML/MIN
== END 2024-09-18 23:59 | disposition home or self-care (01) ==
LOC: LAB 11:02
PROVIDERS: ATTEND Family Medicine
DX: Z13.9 Encounter for screening, unspecified (principal)
CPT/HCPCS: 36415; 80053; 80061; 83036; 85025

== ENCOUNTER 2024-12-18 07:41 | Day surgery (SDC) | payer BC ==
[~2024-12-18] VITALS: Ht 172.7 cm; Wt 72.7 kg
[2024-12-18 08:10] VITALS: BP 136/78; PULSE 72; RESP 20
[2024-12-18] MEDS ORDERED: morphine 2 MG/ML inj. syringe IV PRN (08:10)
[2024-12-18] MEDS ORDERED: acetaminophen 1,000mg/100ml IV 100 ML IV PRN (08:10)
[2024-12-18] MEDS ORDERED: ringers solution, lacted 1,000 ML IV SCH (08:10)
[2024-12-18] MEDS ORDERED: HYDROmorphone/PF 0.2 MG/ML SYRINGE IV PRN (08:10)
[2024-12-18] MEDS ORDERED: proCHLORperazine 10 MG/2 ml inj IV PRN (08:10)
[2024-12-18] MEDS ORDERED: meperidine/PF 25mg/ml syringe IV PRN (08:10)
[2024-12-18] MEDS ORDERED: ondansetron/PF 4mg/2ml inj IV PRN (08:10)
[2024-12-18] MEDS ORDERED: propofol inj 20 ML IV ONE ×2 (09:23→09:27)
[2024-12-18] MEDS ORDERED: propofol inj 0 ML IV ONE (09:23)
[2024-12-18 09:45] VITALS: BP 97/57; PULSE 85; RESP 14; O2SAT 97
[2024-12-18 09:55] VITALS: BP 104/60; PULSE 73; RESP 20; O2SAT 95
[2024-12-18 10:05] VITALS: BP 107/75; PULSE 70; RESP 16; O2SAT 97
[2024-12-18 10:15] VITALS: BP 107/63; PULSE 64; RESP 16; O2SAT 97
== END 2024-12-18 10:30 | disposition home or self-care (01) ==
LOC: GI LAB 07:41
PROVIDERS: ATTEND Internal Medicine Gastroenterology
DX: Z12.11 Encounter for screening for malignant neoplasm of colon (principal); K63.5 Polyp of colon; K57.30 Diverticulosis of large intestine without perforation or abscess without bleeding; K62.89 Other specified diseases of anus and rectum; Z88.8 Allergy status to other drugs, medicaments and biological substances; Z79.899 Other long term (current) drug therapy
CPT/HCPCS: 45380; 45385; J0131; J0780; J1171; J2175; J2270; J2405; J2704; J7030; J7120; Z7512; C1889

== ENCOUNTER → 2025-07-23 | Day surgery (SDC) | payer BC ==
--- NOTE | 2025-07-16 11:43 | ELECTROCARDIOGRAPH REPORT ---
[facility] Date: 2025-07-16 Test Time: 11:40:36 Pat Name: CHRIS VEGA Department: [facility]-PRE-OP Patient ID: [id number] Room: Gender: M Chief Of Anesthesiology: : 1950 Requested By: MATILDE PAIGE Order Number: [id number] Reading MD: Dr. CATHERINE Amor Measurements Intervals [place] Rate: 63 P: 62 FL: 164 QRS: 46 QRSD: 87 T: 56 QT: 406 QTc: 416 Interpretive Statements Sinus rhythm Electronically Signed On 07-16-2025 17:40:[address] CATHERINE Amor Please click the below link to view image of tracing.
[2025-07-16 11:46] LABS: MEAN PLATELET VOLUME 7.9 FL (7.4-10.4); PRE OP HEMATOCRIT 43.6 % (42.0-52.0); PRE OP HEMOGLOBIN 14.9 g/dL (14.0-17.9); PRE OP PLATELET COUNT 209 X10'3 (140-440); PRE OP WHITE BLOOD COUNT 5.5 10'3 (4.8-10.8); RED CELL DISTRIBUTION WIDTH 13.1 % (11.5-14.5)
[2025-07-16 12:18] LABS: CREATININE 1.08 MG/DL (0.60-1.10); PRE OP ALT 19 U/L (30-65); PRE OP ANION GAP 4 (8-16); PRE OP AST 20 U/L (10-37); PRE OP BILIRUB, TOTAL 0.6 MG/DL (0.0-1.0); PRE OP GLUCOSE 98 MG/DL (70-104); PRE OP POTASSIUM 4.5 MMOL/L (3.4-5.1); PRE OP SODIUM 142 MMOL/L (135-145); TOTAL CARBON DIOXIDE 30.3 MMOL/L (24-32); eGFR 67 ML/MIN
[~2025-07-23] VITALS: Ht 172.7 cm; Wt 77.1 kg
[2025-07-23] VITALS (8 sets, daily range): BP systolic 114–131; BP diastolic 76–84; PULSE 60–73; RESP 12–16; TEMP 97.7; O2SAT 94–99
[~2025-07-23] MED LIST changes: +BUPIVAcaine 2.5mg/ml inj 50ml vial (contains preservative) ONE; +BUPIVAcaine/PF 2.5mg/ml (0.25%) 10ml vial ONE; +HYDROmorphone inj. 0.5 MG/0.5 ML DISP.SYRIN IV PRN; +LIDOcaine 2% (20mg/ml) 5ml vial ONE; +NO HOME MEDS; +ROPIVAcaine 0.5% (5mg/ml) 30ml vial ONE; +acetaminophen 1000 MG/100ml vial IV ONE; +cloNIDine hcl/PF 100mcg/ml inj ONE; +dexamethasone sod phosphate 4mg/ml inj. ONE; +fentaNYL/PF 50MCG/1 ML 2ML syringe ONE; +hydrALAZINE 20mg/ml inj. IV PRN; +labetalol 20mg/4ml (5mg/ml) syringe IV PRN; +midazolam 1 mg/ML 2ml injection ONE; +morphine 4 MG/ML inj SYRINge IV PRN; +ondansetron/PF 4mg/2ml inj IV PRN; +ondansetron/PF 4mg/2ml inj ONE; +propofol inj 20 ML IV ONE
[2025-07-23] MEDS: ringers solution, lacted 1,000 ML IV SCH (06:20)
[2025-07-23] MEDS: ceFAZolin 2gm/dext,iso 50mL 50 ML IV ONE (07:23)
[2025-07-23] MEDS: BUPIVAcaine 0.25% w/Epi /PF 30ml vial IJ ONE (08:06)
--- NOTE | 2025-07-23 08:17 | OPERATIVE REPORT ---
Operative Report Providers to ~ Date of Procedure: Jul 23, 2025 Pre-Operative Diagnosis: Right thumb carpometacarpal joint arthritis Post-Operative Diagnosis SAME as PRE-Op Procedure Performed Right thumb ligament reconstruction tendon interposition arthroplasty Surgeon: Stewart Lira MD Air Launch Weapons Technician None Anesthesiologist: Barrie Jacinto Type of Anesthesia: Regional Findings: Estimated Blood Loss: None Specimen Removed: None Description of Procedure: Patient is a 74-year-old man with severe right thumb carpometacarpal joint arthritis. Surgery is indicated relieve symptoms. The previously had successful left thumb surgery. After consent was obtained was brought the operating room where the anesthetic and antibiotic were given. The right arm was prepped and draped in usual manner. The first incision was made over the forearm 8 cm proximal to the volar wrist crease at the flexor carpi radialis musculotendinous junction. Tendon was identified and transected at that level and the incision was closed with Monocryl suture. Second incision was made over the thumb metacarpal curving onto the volar wrist crease. Nerves were protected and mobilized and an arthrotomy was made around the trapezium which was then removed using a sagittal saw and rongeur. A tunnel was made in the metacarpal using a 4 mm round bur from the dorsal edge out to the base. The FCR was then delivered into the thumb wound and the proximal end of it was passed through the tunnel out dorsally and then pulled tight to itself. It was attached with FiberWire suture to itself into the periosteum COMPLETING THE SUSPENSION. The remainder of the tendon was rolled up as an anchovy INTERPOSITION graft and secured in the space created by the trapezium excision, completing the INTERPOSITION. The thumb was stable at this point. Thorough irrigation was done and the capsule was closed over the graft imbricating it and also repairing the abductor tendon back to the metacarpal. The skin was then closed in layers. Marcaine was injected and sterile dressings applied along with a plaster splint. The tourniquet was released and the hand perfused well. The patient was taken to recovery in stable condition and tolerated the procedure well. STEWART LIRA Jr., MD Jul 23, 2025 08:17
[2025-07-23] MEDS: ketorolac trometh 15mg/ml vial 15 MG/ML ML IV ONE (08:36)
== END | disposition home or self-care (01) ==
LOC: PAS 05:52
PROVIDERS: ATTEND Orthopaedic Surgery Hand Surgery
DX: M18.11 Unilateral primary osteoarthritis of first carpometacarpal joint, right hand (principal); R94.31 Abnormal electrocardiogram [ECG] [EKG]; R73.09 Other abnormal glucose; Z85.51 Personal history of malignant neoplasm of bladder; Z88.8 Allergy status to other drugs, medicaments and biological substances
CPT/HCPCS: 25448; 36415; 80053; 82948; 85025; 93005; J0131; J0665; J0735; J1100; J1885; J2003; J2250; J2405; J2704; J2795; J3010; J3490; J7030; J7120; Z7506; Z7508; Z7512; A4215; A4618; A6449; A7000